=== PATIENT | male | born 1935 | race Caucasian/White ===

== ENCOUNTER 2017-01-31 21:04 | Inpatient (IN) | payer OTHER ==
--- NOTE | ~2017-01-31 | CN ---
Consultation Report [facility] [address] [place]. [address] NAME: JASMYNE SIU : 34 STATUS : ADM Pilar PAT#: [id number] AGE: 81 ADM/REG DATE : 01/31/17 MR#: [id number] REPORT SERV DATE: 02/01/17 DICTATED BY: DEEPA ZEPEDA DATE: 02/01/17 REPORT STATUS : Draft TRANSCRIBED BY: MODL DATE: 02/01/17 CONSULTATION NOTE DATE OF CONSULTATION: 02/01/2017 HISTORY OF PRESENT ILLNESS: This is an 81-year-old white male, who began having constipation in mid November, who is followed by Dr. Morales, had colonoscopy done in late November with finding of rectosigmoid colitis. Biopsies were taken which confirmed chronic colitis there. Also biopsies were taken in transverse and ascending colon, those were negative. He was seen in the office, placed on 5-ASA product for a week and had no improvement. He was told to stop that and then continued to began having worse diarrhea. Within a few weeks, he was placed on steroids, and had no improvement there, underwent a Doppler which was essentially negative. He has had no abdominal pain. No fever and no gross bleeding. He underwent a CT scan, which showed the left-sided colitis, but also some inflammation in the right colon as well. He continued to make no improvement, now hospitalized with weakness and positive guaiac. No fever or abdominal pain. Stool studies again negative today. They did not wish to see Dr. Morales this admission, and I was asked to see patient as an outpatient. He has a history of hypertension, hypothyroidism, history of bladder cancer treated with local surgery and chemotherapy. He is status post cholecystectomy, TURP, left hip surgery, and bilateral inguinal hernia repair. SOCIAL HISTORY: Negative EtOH or nicotine. FAMILY HISTORY: Negative for colon cancer. LABORATORY DATA: White count 6600, hemoglobin 11.8. INR 1.4. Albumin 1.9. LFTs normal. PHYSICAL EXAMINATION: GENERAL: Elderly, but alert white male. HEENT: Anicteric. NECK: Negative. CHEST: Clear to percussion. HEART: Regular rhythm. No murmur or gallop. ABDOMEN: Soft, nontender. Hyperactive bowel sounds. EXTREMITIES: Grossly intact. NEUROLOGIC: Grossly intact. ASSESSMENT: 1. Diarrhea with rectosigmoid colitis biopsies obtained, which revealed chronic colitis and biopsies of the right colon was negative. CT revealed Doppler essentially negative. He has had no abdominal pain. No fever. No gross bleeding. 2. Hypertension. 3. Hypothyroidism. Consultation Report [place] [id number] [address] NAME: JASMYNE SIU : 34 STATUS : ADM Pilar PAT#: [id number] AGE: 81 ADM/REG DATE : 01/31/17 MR#: [id number] REPORT SERV DATE: 02/01/17 DICTATED BY: DEEPA ZEPEDA DATE: 02/01/17 REPORT STATUS : Draft TRANSCRIBED BY: JOSAFAT DATE: 02/01/17 SUGGESTION: 1. Continue current regimen for now. 2. We will add Flagyl. 3. We need to consider . 4. Celiac lab and stool studies pending. At some point, we need to consider repeating some of the previous workups such as CT and colonoscopy, but for now we will begin with the above. We will follow with you. Thank you very much for the consultation. JONATHON/JOSAFAT Deepa Zepeda M.D. / [id number] CC: Adan Dorado Jr, MD PETERSEN, ANDERS EUGENE
--- NOTE | ~2017-01-31 | IDS ---
Interim Discharge Summary [facility] [address] [place]. [address] NAME: JASMYNE SIU : 34 STATUS : ADM IN PAT#: [id number] AGE: 81 ADM/REG DATE : 01/31/17 MR#: [id number] REPORT SERV DATE: 02/05/17 DICTATED BY: JR. DORADO WILLIAM JOHN DATE: 02/05/17 REPORT STATUS : Draft TRANSCRIBED BY: MODL DATE: 02/05/17 ADMISSION DATE: 01/31/2017 DISCHARGE DATE: This summary covers the time period from 01/31/2017 through 02/05/2017. WORKING DIAGNOSES: 1. Foreign body in duodenum, status post retrieval. 2. Profound diarrhea. 3. Protein-calorie malnutrition. 4. Macrocytic anemia. 5. History of hypertension. 6. History of hypothyroidism. 7. Weakness. OPERATIONS, PROCEDURES, AND TREATMENTS: 1. Upper endoscopy, done 02/04/2017, by Dr. Gonzalez, which showed normal esophagus, normal stomach, duodenal bulb with a quarter in it, which was removed with a Chatterjee Net. 2. C. diff, done 01/31/2017, was negative. Cryptosporidium negative. Stool culture with normal bean. 3. Giardia negative. Fecal leukocytes 0-5. Shiga toxin negative. Occult blood positive. Stool for fat and fatty acid were normal. 4. Small bowel follow-through, done 02/03/2017, was normal except a coin in the duodenum. CURRENT MEDICATIONS: See daily progress note. HOSPITAL COURSE: The patient was an 81-year-old white male, who presented to the emergency room on 02/01/2017, with diarrhea and weakness. He had diarrhea consisting of greater than 10 bowel movements per day for approximately one month, had seen a application security consultant in [place], Dr. Morales. The patient had a lower endoscopy biopsy, apparently showed colitis. He was placed on balsalazide. Unfortunately, this made him very weak, he stopped taking it, and was on a steroid taper at some point, the details are unclear. Regardless, the patient presented to [facility] emergency room with diarrhea. Initial exam showed temperature 98, heart rate 105, respiratory rate 22, blood pressure 112/55. Exam was overall unremarkable. The patient was admitted to the Clinical Decision Unit. He was continued on prednisone. Had stool studies as above. All of this was unremarkable. He had fecal fat and osmolality, looking for causes of diarrhea, none of this was indicative of a specific diagnosis. The patient was seen by Dr. Gonzalez. He was started on Flagyl and continued to have diarrhea. He has a small bowel follow-through, which showed a coin in the duodenal bulb, underwent an upper endoscopy with coin retrieval; however, continued to have diarrhea. Further workup per Dr. Gonzalez. Plan is to discharge when okay with Dr. Gonzalez. For today's exam and laboratory, please see daily progress note. WJF/MODL Interim Discharge Summary [address] [address] NAME: JASMYNE SIU : 34 STATUS : ADM IN PAT#: [id number] AGE: 81 ADM/REG DATE : 01/31/17 MR#: [id number] REPORT SERV DATE: 02/05/17 DICTATED BY: JR. DORADO WILLIAM JOHN DATE: 02/05/17 REPORT STATUS : Draft TRANSCRIBED BY: JOSAFAT DATE: 02/05/17 Adan oDrado Jr, MD / [id number] CC: Adan oDrado Jr, MD PETERSEN, ANDERS EUGENE
--- NOTE | ~2017-01-31 | EGD ---
EGD REPORT [facility] [address] [place] [address] NAME: JASMYNE SIU : 34 STATUS : ADM IN PAT#: [id number] AGE: 81 ADM/REG DATE : 01/31/17 MR#: [id number] REPORT SERV DATE: 02/04/17 DICTATED BY: DEEPA ZEPEDA DATE: 02/04/17 REPORT STATUS : Draft TRANSCRIBED BY: [facility] DATE: 02/04/17 Endoscopy Center Patient Name: Jasmyne Siu Date of : 1935 Attending MD: DEEPA ZEPEDA MD Procedure Date No Time: 02/04/2017 Procedure: Upper GI endoscopy Indications: retained quarter in duodenal bulb Referring MD: Arturo Ly Medicines: as per anesthesia Complications: No immediate complications. Procedure: Pre-Anesthesia Assessment: - ASA Grade Assessment: III - A patient with severe systemic disease. After obtaining informed consent, the endoscope was passed under direct vision. Throughout the procedure, the patient's blood pressure, pulse, and oxygen saturations were monitored continuously. The GIF [id number] was introduced through the mouth, and advanced to the duodenal bulb. The upper GI endoscopy was accomplished without difficulty. The patient tolerated the procedure. Findings: The examined esophagus was normal. The entire examined stomach was normal. The exam was otherwise without abnormality. quarter in bulb removed with portillo net A foreign body was found in the duodenal bulb. Impression: - Normal esophagus. - Normal stomach. - The examination was otherwise normal. - Duodenal foreign body. Recommendation: - Continue present medications. Procedure Code(s): --- Professional --- 72234, Esophagogastroduodenoscopy, flexible, transoral; diagnostic, including collection of specimen(s) by brushing or washing, when performed (separate procedure) Diagnosis Code(s): --- Professional --- T18.3XXS, Foreign body in small intestine, sequela EGD REPORT [facility] [address]. [address] NAME: JASMYNE SIU : 34 STATUS : ADM IN PAT#: [id number] AGE: 81 ADM/REG DATE : 01/31/17 MR#: [id number] REPORT SERV DATE: 02/04/17 DICTATED BY: DEEPA ZEPEDA. DATE: 02/04/17 REPORT STATUS : Draft TRANSCRIBED BY: [employer] DATE: 02/04/17 CPT copyright 2013 [employer]. All rights reserved. The codes documented in this report are preliminary and upon organ teacher review may be revised to meet current compliance requirements. DEEPA ZEPEDA MD 02/04/2017 3:22 PM This report has been signed electronically. Number of Addenda: 0 Note Initiated On: 02/04/2017 2:31 PM Scope Withdrawal Time 0 hours 0 minutes 0 seconds [address] [place] [address]
--- NOTE | ~2017-01-31 | DS ---
Discharge Summary [facility] [address] [place]. [address] NAME: JASMYNE SIU : 34 STATUS : DIS IN PAT#: [id number] AGE: 81 ADM/REG DATE : 01/31/17 MR#: [id number] REPORT SERV DATE: 02/08/17 DICTATED BY: RUSTAM FLORES DATE: 02/07/17 REPORT STATUS : Draft TRANSCRIBED BY: JOSAFAT DATE: 02/07/17 ADMISSION DATE: 01/31/2017 DISCHARGE DATE: 02/07/2017 ADDENDUM: Dictation is an addition to interim discharge summary dictated by Dr. Doraod on 02/05/2017. I assumed care of the patient on 02/06/2017. At the time of my assumption of care, the patient was hemodynamically stable with significant improvement in his diarrhea. The patient now reported that he was having bowel movements about three to six daily, which was a significant improvement from earlier on during his presentation. The patient has been seen by GI and from their standpoint, the patient is stable enough for discharge. Given significant improvement in symptoms, his hemodynamic stability, his ability to tolerate p.o. diet, and clearance by GI, the patient will be discharged, will, therefore, be discharged. Plan has been discussed with the patient and , who voiced understanding and agreeable with plan. All questions were also answered. DISCHARGE MEDICATIONS: 1. Welchol 625 mg p.o. with breakfast. 2. Levothyroxine 50 mcg p.o. daily. 3. Pantoprazole 40 mg p.o. with breakfast. 4. Prednisone taper. 5. Flagyl 500 mg three times a day for 10 days. 6. Losartan 50 mg p.o. daily. 7. All other information in interim discharge summary remains the same. DISPOSITION: The patient will be discharged home to follow with primary care physician in five to seven days. ACTIVITY: As tolerated. DIET: Regular diet. Greater than 30 minutes was spent providing counseling, dictation of note, and medication reconciliation. RAJ/JOSAFAT Rustam Flores MD / [id number] CC: MD EDELMIRA Quintero
--- NOTE | ~2017-01-31 | HP ---
History And Physical [address] [place]. [address] NAME: JASMYNE SIU : 34 STATUS : ADM Pilar PAT#: [id number] AGE: 81 ADM/REG DATE : 01/31/17 MR#: [id number] REPORT SERV DATE: 02/01/17 DICTATED BY: DEBBY ARREOLA DATE: 01/31/17 REPORT STATUS : Draft TRANSCRIBED BY: MODL DATE: 01/31/17 DATE OF ADMISSION: 01/31/2017 IDENTIFYING DATA: An 81-year-old white male whose PCP is Dr. Ari Robles. CHIEF COMPLAINT: Diarrhea and weakness. HISTORY OF PRESENT ILLNESS: This history of present illness is obtained by talking with the patient and his and the ER physician, Dr. Santana, as well as reviewing [employer] and [employer] and the current ER paper chart. It is not easy to tell exactly what happened first. It sounds like the patient had a change in his stool habit where he became constipated, then he went through a colonoscopy as an outpatient and was told he had colitis, then he was put on balsalazide 750 mg t.i.d. He took it maybe a week, he states it made him feel very weak and dry mouth, so he quit it. Some time then he developed some diarrhea and has been 19/04 that diarrhea. He states there is no bright red blood. No melena. No fever. No abdominal pain. He has some chills. He has some sweats. He is having between 10 and 20 stools per 24 hours. It is brown and watery. He states his current GI, Dr. Morales, gave him some prednisone. He has been taking that now for about two weeks without any benefit. He has also been given Lomotil without any benefit. He has taken that Lomotil about a week. 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 He has no sick contacts. Does not work with or he is not around farm animals. They have one dog who appears healthy. He has city water. He has lost about 10 pounds in the last three weeks. He states he is still weak now. He feels like he is going to faint, and he can only walk a short distance before he feels like he has to stop and rest He states as an outpatient, GI sent him to [facility] for what sounds like a mesenteric Doppler. The patient states that they told him it was not conclusive. He also describes taking diarrhea specimens to [facility] and he was told that the results were okay. He also describes having a CT scan done at [facility], as far as he knows, it was okay. Because he was so weak and the diarrhea persisted, he came to the emergency room here and the ER doctor felt he was so weak, he needed to be kept at the hospital, so called us. REVIEW OF SYSTEMS: He has some urinary urgency and incontinence since these last three weeks. He has had no falls. He has had no cough, no nasal congestion sore throat, chest pain, shortness of breath, dysuria, urinary hesitancy, peripheral edema, rash, tick bites, or headaches. ALLERGIES: NO KNOWN DRUG ALLERGIES. PAST MEDICAL HISTORY: He denies any history of diabetes, asthma, COPD, stroke, seizure, liver disease, chronic kidney disease, kidney stones, sleep apnea. History And Physical [address] [address] NAME: JASMYNE SIU : 34 STATUS : ADM Pilar PAT#: [id number] AGE: 81 ADM/REG DATE : 01/31/17 MR#: [id number] REPORT SERV DATE: 02/01/17 DICTATED BY: DEBBY ARREOLA DATE: 01/31/17 REPORT STATUS : Draft TRANSCRIBED BY: JOSAFAT DATE: 01/31/17 He has a history of hypertension, and he states a month or two ago his PCP noticed his heart rhythm was irregular sent into [facility], where the patient states he was checked out and he was told everything was fine. He has a history of hypothyroidism. He has had previous hyperplastic polyps. He admits peptic ulcer. His states that years ago he has a history of bladder cancer. I asked him several times if he had radiation, he and the stated that he just had chemotherapy infused in the bladder and some resections of the bladder tumor through a scope up his penis. HOME MEDICATION: Balsalazide 750 mg t.i.d., but he stopped taking that sometime back; Lomotil p.r.n. diarrhea; levothyroxine 50 mcg daily; Imodium that he had started himself without benefit 2 mg; Cozaar 50 mg daily; prednisone 20 mg tablets and he should be on either 60 mg a day now or maybe down to 40 mg a day, it sounds like probably 40 mg a day, but he stopped it. PAST SURGICAL HISTORY: He has had a cholecystectomy. He has had TURBT, left hip fracture repair, left total hip arthroplasty, bilateral inguinal hernia repair. SOCIAL HISTORY: He quit smoking in the 1970s. He denies alcohol intake. He is . He is a retired missionary. As I said above, he was in [place], and he has [place] since [place]. He states he walks without any assistive device. FAMILY HISTORY: Mother with diabetes and heart disease. Father had heart disease and sounds like he had congestive heart failure. One sibling has obesity and pancreas problems and potassium problems. DIAGNOSTIC DATA: Sodium 135, potassium 4.1, chloride 102, CO2 is 26, BUN 19, creatinine 1.02, glucose 100, calcium is 7.6. Total protein 5.7, albumin is 1.9. The rest of the CMP is normal. Lipase is 265. His white count is 7.5, his hemoglobin is 12.3, his MCV is 101.1, platelets are 172,000. Urinalysis trace ketones, but otherwise unremarkable. PHYSICAL EXAMINATION: VITAL SIGNS: Temp 98, pulse 105, respirations 22, blood pressure is 112/55, O2 saturation 94% on room air. GENERAL: Well-developed male, who appears weak, but in no acute distress. HEENT: Head is atraumatic. Pupils are equal, round, and reactive to light. Extraocular motions are intact. No scleral icterus noted. Ear canals and TMs are unremarkable with normal hearing and no inflammatory changes noted externally. Nose, noninflamed externally. Septum midline. Nares patent. Mouth is moist. Good gag. No redness of the throat, gums, or lips. His mouth is a bit dry though. NECK: Supple. No lymph node or thyroid enlargement. The carotids have good pulses. No bruits. LUNGS: Clear good air flow. No wheezes, no rhonchi. Normal respiratory effort. HEART: Tachycardic, but regular without murmur, gallop, click, or rub. ABDOMEN: Bowel sounds positive. Soft, nondistended, nontender. No masses. No organomegaly. No bruits noted. EXTREMITIES: Warm. Good pulses. No clubbing, no cyanosis, no edema. No actively inflamed History And Physical [address] [place]. [address] NAME: JASMYNE SIU : 34 STATUS : ADM Pilar PAT#: [id number] AGE: 81 ADM/REG DATE : 01/31/17 MR#: [id number] REPORT SERV DATE: 02/01/17 DICTATED BY: DEBBY ARREOLA DATE: 01/31/17 REPORT STATUS : Draft TRANSCRIBED BY: MODL DATE: 01/31/17 skin or joints. NEUROLOGIC: He is alert, oriented, and cooperative. His motor strength is 3/5 in his hands, 2/5 in his legs. No Babinski. No clonus noted. Cranial nerves II through XII grossly normal. ASSESSMENT: 1. 3+ weeks of profound diarrhea with a recent diagnosis of nonspecific colitis, now complicated by severe protein calorie malnutrition. Severe weakness and lack of response to sulfasalazine and prednisone and Lomotil. 2. Macrocytic anemia. 3. History of hypertension. 4. History of hypothyroidism. PLAN: 1. The patient is going to be placed in observation status. We are going to give him IV fluids with lactated Ringer's. Stools for ova and parasite have actually just come back from specimens done here in the ER and they are negative. Stool leukocytes 0 to 5 per high power field. I am going to finish routine cultures and we will check C. diff. We will try to get the request of the stool studies from [facility] as well as the CT scan and the duplex Doppler there. We are going to consult GI. The patient requests Dr. Gonzalez to see him. 2. We will check an EKG because he states he had recent evaluation for irregular heart rhythm. We will also check his TSH to make sure he is not overly suppressed that might give him diarrhea, and with his macrocytic anemia, we will check B12 and folic acid and also iron studies. I am also going to give him a PPI to reduce diarrhea as it can reduce secretions some, and we are going to continue prednisone at 60 mg a day. updated at the bedside at this time. MICHELLEG/MODL Debby Arreola M.D. / [id number] CC: Adan Dorado Jr, MD Dr. Eugene Peterson Larry Shuster, M.D.
[2017-01-31 19:40] LABS: ASCORBIC ACID (UR NOT ORDER) NEG (NEG); BILIRUBIN, URINE NEGATIVE (NEG); ER URINALYSIS TAT 0 Hrs 10 Mins; KETONE, URINE TRACE MG/DL (NEG); LEUKOCYTE ESTERASE(NOT OR NEG (NEG); NITRITE (URINE) NEG (NEG); WBC (NOT ORDERED) (RFLEX) 3 (0-5)
[2017-01-31 19:59] LABS: BASOPHILS 0.1 %; BASOPHILS ABSOLUTE 0.01 10/3/uL (0.0-0.16); EOSINOPHILS 0.8 %; EOSINOPHILS ABSOLUTE 0.06 10/3/uL (0.0-0.53); HEMATOCRIT 35.4 % (40.0-51.0); HEMOGLOBIN 12.3 g/dL (13.6-17.8); IMMATURE GRANULOCYTES 0.4 %; LYMPHOCYTES 19.8 %; LYMPHOCYTES ABSOLUTE 1.49 10/3/uL (0.67-4.30); MANUAL DIFF NO %; MEAN CORPUS HGB CONC 34.7 g/dL (32.0-36.0); MEAN CORPUSCULAR HEMOGLOB 35.1 pg (26.0-34.0); MEAN CORPUSCULAR VOLUME 101.1 fL (80-100); MONOCYTES 7.2 %; MONOCYTES ABSOLUTE 0.54 10/3/uL (0.21-1.20); NEUTROPHILS 71.7 %; NEUTROPHILS ABSOLUTE 5.38 10/3/uL (2.02-8.40); PLATELET COUNT 172 10/3/uL (150-400); RBC DISTRIBUTION WIDTH 12.6 % (12.0-16.0); WHITE BLOOD CELLS 7.5 10/3/uL (4.5-10.5)
[2017-01-31 20:00] LABS: IMMATURE GRANULOCYTES ABSOLUTE 0.03 10/3/uL (0.0-0.11)
[2017-01-31 20:14] LABS: A/G RATIO 0.5 (0.7-1.9); ALBUMIN 1.9 G/DL (3.5-5.0); ALKALINE PHOSPHATASE 65 U/L (45-117); BUN (BLOOD UREA NITROGEN) 19 MG/DL (6-23); CALCIUM, SERUM 7.6 MG/DL (8.5-10.4); CHLORIDE, SERUM 102 MMOL/L (96-112); CO2 (CARBON DIOXIDE) 26 MMOL/L (24-34); CREATININE 1.02 MG/DL (0.70-1.30); GFR AFRICAN AMERICAN 79 ML/MIN (>=60); GFR NON AFRICAN AMERICAN 68 ML/MIN (>=60); GLOBULIN 3.8 G/DL (2.5-4.1); GLUCOSE, SERUM 100 MG/DL (60-99); POTASSIUM, SERUM 4.1 MMOL/L (3.5-5.3); SGOT(AST) 16 U/L (5-40); SGPT(ALT) 32 U/L (5-65); SODIUM, SERUM 135 MMOL/L (135-148); TOTAL BILIRUBIN 0.6 MG/DL (0-1.2); TOTAL PROTEIN 5.7 G/DL (6.0-8.5)
[2017-01-31 20:24] LABS: BAND NEUTROPHILS 22 %; EOSINOPHILS 1 %; EOSINOPHILS ABSOLUTE (CALC) 0.08 10/3/uL (0.0-0.53); ER DIFF TAT 0 Hrs 29 Mins; LYMPHOCYTES 13 %; LYMPHOCYTES ABSOLUTE (CALC) 0.98 10/3/uL (0.67-4.30); MONOCYTES 9 %; MONOCYTES ABSOLUTE (CALC) 0.68 10/3/uL (0.21-1.20); NEUTROPHILS ABSOLUTE (CALC) 5.78 10/3/uL (2.02-8.40); PLATELET ESTIMATE ADQ (ADEQUATE); SEGMENTED NEUTROPHIL (0) 55 %; TOTAL NUCLEATED CELLS 100
[2017-01-31 20:25] LABS: MACROCYTES 1+ (5-10/OIF) (0-5/OIF); TOXIC GRANULATION MOD
[2017-01-31] MEDS ORDERED: IMOD PO (21:09)
[2017-01-31] MEDS ORDERED: LOM PO (21:09)
[2017-01-31] MEDS ORDERED: P20 PO (21:12)
[2017-01-31] MEDS ORDERED: COZ50 PO (21:13)
[2017-01-31] MEDS ORDERED: LEVOTHYROXIN50 MCG PO (21:13)
[2017-01-31] MEDS ORDERED: COLAZAL750 MG PO (21:14)
[2017-02-01 05:04] LABS: HEMATOCRIT 34.2 % (40.0-51.0); HEMOGLOBIN 11.8 g/dL (13.6-17.8); MANUAL DIFF YES %; MEAN CORPUS HGB CONC 34.5 g/dL (32.0-36.0); MEAN CORPUSCULAR VOLUME 101.5 fL (80-100); MEAN PLATELET VOLUME 9.5 fL (9.2-13.0); PLATELET COUNT 180 10/3/uL (150-400); RBC DISTRIBUTION WIDTH 12.8 % (12.0-16.0); RED CELL COUNT 3.37 10/6/uL (4.7-6.1); WHITE BLOOD CELLS 6.6 10/3/uL (4.5-10.5)
[2017-02-01 05:05] LABS: INTERNATIONAL NORMAL RATI 1.4 UNITS (-); PARTIAL THROMBO TIME 38.8 SEC (22.5-37.2); PROTIME (NOT ORD) 16.6 SEC (12.0-14.5)
[2017-02-01 05:38] LABS: CALCIUM, SERUM 7.6 MG/DL (8.5-10.4); CHLORIDE, SERUM 104 MMOL/L (96-112); CO2 (CARBON DIOXIDE) 25 MMOL/L (24-34); CREATININE 0.92 MG/DL (0.70-1.30); FERRITIN 294 NG/ML (26-388); GFR AFRICAN AMERICAN 89 ML/MIN (>=60); GFR NON AFRICAN AMERICAN 77 ML/MIN (>=60); GLUCOSE, SERUM 98 MG/DL (60-99); IRON BINDING CAPACITY 170 MCG/DL (250-450); IRON, SERUM 20 MCG/DL (35-150); POTASSIUM, SERUM 4.1 MMOL/L (3.5-5.3); SODIUM, SERUM 136 MMOL/L (135-148)
[2017-02-01 05:43] LABS: BUN (BLOOD UREA NITROGEN) 15 MG/DL (6-23); FOLATE 15.7 NG/ML (>5.2)
[2017-02-01 06:04] LABS: BAND NEUTROPHILS 36 %; IMMATURE GRANS ABSOLUTE (CALC) 0.13 10/3/uL (0.0-0.11); LYMPHOCYTES 8 %; LYMPHOCYTES ABSOLUTE (CALC) 0.53 10/3/uL (0.67-4.30); METAMYELOCYTES 2 %; MONOCYTES 4 %; MONOCYTES ABSOLUTE (CALC) 0.26 10/3/uL (0.21-1.20); NEUTROPHILS ABSOLUTE (CALC) 5.68 10/3/uL (2.02-8.40); PLATELET ESTIMATE ADQ (ADEQUATE); RBC MORPHOLOGY NORM (NORMAL); SEGMENTED NEUTROPHIL (0) 50 %; TOTAL NUCLEATED CELLS 100
[2017-02-01 06:05] LABS: TOXIC GRANULATION MARKED
[2017-02-01 06:37] LABS: PROCALCITONIN 0.27 ng/mL (<0.5)
[2017-02-02 05:23] LABS: BASOPHILS 0.2 %; BASOPHILS ABSOLUTE 0.01 10/3/uL (0.0-0.16); EOSINOPHILS 0 %; HEMATOCRIT 35.1 % (40.0-51.0); IMMATURE GRANULOCYTES 0.5 %; IMMATURE GRANULOCYTES ABSOLUTE 0.03 10/3/uL (0.0-0.11); LYMPHOCYTES 16.7 %; LYMPHOCYTES ABSOLUTE 0.95 10/3/uL (0.67-4.30); MEAN CORPUS HGB CONC 34.2 g/dL (32.0-36.0); MEAN CORPUSCULAR HEMOGLOB 34.7 pg (26.0-34.0); MEAN CORPUSCULAR VOLUME 101.4 fL (80-100); MEAN PLATELET VOLUME 9.3 fL (9.2-13.0); MONOCYTES 7.9 %; MONOCYTES ABSOLUTE 0.45 10/3/uL (0.21-1.20); NEUTROPHILS 74.7 %; NEUTROPHILS ABSOLUTE 4.26 10/3/uL (2.02-8.40); PLATELET COUNT 172 10/3/uL (150-400); RBC DISTRIBUTION WIDTH 12.7 % (12.0-16.0); RED CELL COUNT 3.46 10/6/uL (4.7-6.1); WHITE BLOOD CELLS 5.7 10/3/uL (4.5-10.5)
[2017-02-02 05:36] LABS: MANUAL DIFF NO %
[2017-02-02 05:42] LABS: CALCIUM, SERUM 8.1 MG/DL (8.5-10.4); CHLORIDE, SERUM 107 MMOL/L (96-112); CO2 (CARBON DIOXIDE) 25 MMOL/L (24-34); CREATININE 0.81 MG/DL (0.70-1.30); GFR AFRICAN AMERICAN 96 ML/MIN (>=60); GFR NON AFRICAN AMERICAN 83 ML/MIN (>=60); POTASSIUM, SERUM 4.7 MMOL/L (3.5-5.3); SODIUM, SERUM 140 MMOL/L (135-148)
[2017-02-02 05:47] LABS: BUN (BLOOD UREA NITROGEN) 10 MG/DL (6-23); GLUCOSE, SERUM 130 MG/DL (60-99)
[2017-02-04 07:08] LABS: BUN (BLOOD UREA NITROGEN) 9 MG/DL (6-23); CALCIUM, SERUM 7.8 MG/DL (8.5-10.4); CHLORIDE, SERUM 105 MMOL/L (96-112); CO2 (CARBON DIOXIDE) 26 MMOL/L (24-34); CREATININE 0.72 MG/DL (0.70-1.30); GFR AFRICAN AMERICAN 101 ML/MIN (>=60); GFR NON AFRICAN AMERICAN 87 ML/MIN (>=60); GLUCOSE, SERUM 112 MG/DL (60-99); POTASSIUM, SERUM 4.2 MMOL/L (3.5-5.3); SODIUM, SERUM 139 MMOL/L (135-148)
[2017-02-07 05:53] LABS: BASOPHILS 0.2 %; BASOPHILS ABSOLUTE 0.01 10/3/uL (0.0-0.16); EOSINOPHILS 0.2 %; EOSINOPHILS ABSOLUTE 0.01 10/3/uL (0.0-0.53); HEMATOCRIT 33.3 % (40.0-51.0); HEMOGLOBIN 11.4 g/dL (13.6-17.8); IMMATURE GRANULOCYTES 0.2 %; IMMATURE GRANULOCYTES ABSOLUTE 0.01 10/3/uL (0.0-0.11); LYMPHOCYTES 28.1 %; LYMPHOCYTES ABSOLUTE 1.31 10/3/uL (0.67-4.30); MEAN CORPUS HGB CONC 34.2 g/dL (32.0-36.0); MEAN CORPUSCULAR HEMOGLOB 34.7 pg (26.0-34.0); MEAN CORPUSCULAR VOLUME 101.2 fL (80-100); MEAN PLATELET VOLUME 9.8 fL (9.2-13.0); MONOCYTES 7.9 %; MONOCYTES ABSOLUTE 0.37 10/3/uL (0.21-1.20); NEUTROPHILS 63.4 %; NEUTROPHILS ABSOLUTE 2.96 10/3/uL (2.02-8.40); PLATELET COUNT 144 10/3/uL (150-400); RBC DISTRIBUTION WIDTH 12.8 % (12.0-16.0); RED CELL COUNT 3.29 10/6/uL (4.7-6.1); WHITE BLOOD CELLS 4.7 10/3/uL (4.5-10.5)
[2017-02-07 05:54] LABS: MANUAL DIFF NO %
[2017-02-07 06:09] LABS: A/G RATIO 0.5 (0.7-1.9); ALBUMIN 1.8 G/DL (3.5-5.0); BUN (BLOOD UREA NITROGEN) 12 MG/DL (6-23); CALCIUM, SERUM 7.7 MG/DL (8.5-10.4); CHLORIDE, SERUM 105 MMOL/L (96-112); CO2 (CARBON DIOXIDE) 27 MMOL/L (24-34); CREATININE 0.77 MG/DL (0.70-1.30); GFR AFRICAN AMERICAN 98 ML/MIN (>=60); GFR NON AFRICAN AMERICAN 85 ML/MIN (>=60); GLOBULIN 3.7 G/DL (2.5-4.1); GLUCOSE, SERUM 116 MG/DL (60-99); POTASSIUM, SERUM 4.1 MMOL/L (3.5-5.3); SGOT(AST) 11 U/L (5-40); SGPT(ALT) 27 U/L (5-65); SODIUM, SERUM 135 MMOL/L (135-148); TOTAL BILIRUBIN 0.3 MG/DL (0-1.2); TOTAL PROTEIN 5.5 G/DL (6.0-8.5)
[2017-02-07 06:27] LABS: ALKALINE PHOSPHATASE 49 U/L (45-117)
[2017-02-07] MEDS ORDERED: WELCHOL 625 MG625 MG PO (09:22)
[2017-02-07] MEDS ORDERED: P10 PO (09:22)
[2017-02-07] MEDS ORDERED: FLAG500TAB PO (09:23)
[2017-02-07] MEDS ORDERED: PROTONIX PO (09:23)
== END 2017-02-07 10:47 | disposition home or self-care (01) | DRG 394 ==
LOC: ER 21:04 → CDU1 22:16 → 4SO 02-03 15:35
PROVIDERS: Hospitalist; Internal Medicine; Internal Medicine Gastroenterology
PROC: 0DC98ZZ Extirpation of Matter from Duodenum, Via Natural or Artificial Opening Endoscopic (ICD-10-PCS; principal; 2017-02-04 13:00)
DX: T18.3XXA Foreign body in small intestine, initial encounter (principal); E46 Unspecified protein-calorie malnutrition; D64.9 Anemia, unspecified; K52.9 Noninfective gastroenteritis and colitis, unspecified; I10 Essential (primary) hypertension; E03.9 Hypothyroidism, unspecified; Z85.51 Personal history of malignant neoplasm of bladder; Z92.21 Personal history of antineoplastic chemotherapy; Z90.6 Acquired absence of other parts of urinary tract; Z90.49 Acquired absence of other specified parts of digestive tract; Z87.891 Personal history of nicotine dependence; X58.XXXA Exposure to other specified factors, initial encounter; Z86.010 Personal history of colon polyps; Z96.642 Presence of left artificial hip joint; Z68.24 Body mass index [BMI] 24.0-24.9, adult; R53.1 Weakness
CPT/HCPCS: 74249; 80048; 80053; 81001; 82272; 82607; 82728; 82746; 83540; 83550; 83690; 84145; 84443; 85025; 85610; 85730; 86256; 87045; 87046; 87046-59; 87328; 87329; 87493; 87493-59; 87899; 87899-59; 89055; 89125; 93005; 96374; 97161-GP; 99285; A9270-GY; J2405